=== PATIENT | female | born 1965 | race Caucasian/White ===

== ENCOUNTER 2016-08-24 22:59 | Emergency (ER) | payer SELFPAY ==
[2016-08-25 00:50] VITALS: BP 111/70; PULSE 93; RESP 16; TEMP 99.2; O2SAT 98
[2016-08-25] MEDS ORDERED: Promethazine/Cod 6.25mg-10mg/5ml Syr UD PO ONE (01:27)
[2016-08-25] MEDS ORDERED: Promethazine/Cod 6.25mg-10mg/5ml Syr UD ONE (01:37)
--- NOTE | 2016-08-25 01:48 | ED PDOC ---
HPI: CCC, URI, Sore Throat Time Seen by Provider: 08/25/16 01:02 Chief Complaint (Nursing): Headache Chief Complaint (Provider): Cough, chest pain and back pain when coughing History Per: Patient History/Exam Limitations: no limitations Have you had recent travel within the past 21 days to any of the following countries: [place], [place], [place] or [place]?: No Onset/Duration Of Symptoms: Days Current Symptoms Are (Timing): Still Present Location Of Pain: Diffuse Myalgias Sick Contacts (Context): None Associated Symptoms: Cough, Myalgias. denies: Fever, Sore Throat, Sputum Ear Symptoms: Bilateral: None Additional Complaint(s): Cough since yesterday with body aches. Pt deneis fever but states she has been feeling hot. Pt took amoxicillin yesterday and today which she had from her country. No medication for cough. Past Medical History Reviewed: Historical Data, Nursing Documentation, Vital Signs Vital Signs: Last Vital Signs Temp 99.2 F 08/25/16 00:46 Pulse 93 H 08/25/16 00:46 Resp 16 08/25/16 00:46 BP 111/70 08/25/16 00:46 Pulse Ox 98 08/25/16 01:49 - Medical History PMH: Gastritis, Hyperlipidemia - Surgical History Surgical History: No Surg Hx - Family History Family History: States: Unknown Family Hx - Living Arrangements Living Arrangements: With Family - Social History Current smoker - smoking cessation education provided: No - Home Medications Home Medications: Ambulatory Orders Medication Instructions Recorded Omeprazole [Prilosec] 40 mg PO DAILY #30 ecc 04/28/15 Ibuprofen [Motrin Tab] 600 mg PO Q8H PRN #20 tab 12/09/15 traMADol [Ultram] 50 mg PO Q6H PRN #15 tab 12/09/15 Promethazine HCl/Codeine 10 ml PO Q8H PRN #150 ml 08/25/16 [Prometh-Codein 6.25-10 mg/5 ml] - Allergies Allergies/Adverse Reactions: Allergies Allergy/AdvReac Type Severity Reaction Status Date / Time No Known Allergies Allergy Verified 12/09/15 21:40 Review of Systems ROS Statement: Except As Marked, All Systems Reviewed And Found Negative Constitutional: Positive for: Sweats, Malaise. Negative for: Fever, Chills Cardiovascular: Positive for: Chest Pain Respiratory: Positive for: Cough Physical Exam - Reviewed Nursing Documentation Reviewed: Yes Vital Signs Reviewed: Yes - Physical Exam Appears: Positive for: Well, Non-toxic, No Acute Distress Head Exam: Positive for: ATRAUMATIC, NORMAL INSPECTION, NORMOCEPHALIC Skin: Positive for: Normal Color, Warm, DRY Eye Exam: Positive for: EOMI, Normal appearance, PERRL ENT: Positive for: Normal ENT Inspection Neck: Positive for: Normal, Painless ROM Cardiovascular/Chest: Positive for: Regular Rate, Rhythm Respiratory: Positive for: Normal Breath Sounds. Negative for: Accessory Muscle Use, Respiratory Distress Gastrointestinal/Abdominal: Positive for: Normal Exam, Bowel Sounds Back: Positive for: Normal Inspection Extremity: Positive for: Normal ROM Neurologic/Psych: Positive for: Alert, Oriented - ECG O2 Sat by Pulse Oximetry: 98 Pulse Ox Interpretation: Normal Medical Decision Making Medical Decision Making: (+) influenza CXR - Normal Disposition - Clinical Impression Clinical Impression: Influenza A - Patient ED Disposition Is Patient to be Admitted: No - Disposition Referrals: FAMILY PROVIDER,NO [Primary Care Provider] - [facility] [Outside] Disposition: Routine/Home Disposition Time: 02:24 Condition: GOOD Additional Instructions: Tylenol or motrin for fever. Prescriptions: Promethazine HCl/Codeine [Prometh-Codein 6.25-10 mg/5 ml] 10 ml PO Q8H PRN #150 ml PRN Reason: Cough Instructions: Influenza (ED) Print Language: BENGALI
--- NOTE | 2016-08-25 08:39 | RAD ---
HISTORY: cough, chest and back pain with cough COMPARISON: No prior. TECHNIQUE: Chest PA and lateral FINDINGS: LUNGS: No active pulmonary disease. PLEURA: No significant pleural effusion identified. No pneumothorax apparent. CARDIOVASCULAR: Normal. OSSEOUS STRUCTURES: No significant abnormalities. VISUALIZED UPPER ABDOMEN: Normal. OTHER FINDINGS: None. IMPRESSION: No active disease.
== END 2016-08-25 02:41 | disposition home or self-care (01) ==
LOC: H.ER 22:59
DX: R05 Cough (principal); J10.1 Influenza due to other identified influenza virus with other respiratory manifestations; R07.9 Chest pain, unspecified; J02.9 Acute pharyngitis, unspecified; E78.5 Hyperlipidemia, unspecified

== ENCOUNTER 2016-12-09 02:02 | Emergency (ER) | payer OTHER ==
[2016-12-09 02:40] VITALS: BP 103/56; PULSE 65; RESP 16; TEMP 98.5; O2SAT 100
--- NOTE | 2016-12-09 02:54 | ED PDOC ---
HPI: CCC, URI, Sore Throat Time Seen by Provider: 12/09/16 02:07 Chief Complaint (Nursing): ENT Problem Chief Complaint (Provider): Sore throat History Per: Patient Additional Complaint(s): pt is a 51 yo female, no PMH, presents to ED with complaints of left sided sore throat pain, left ear pain, and headache x8 days. Pt denies v/n/d. Pt medicated herself with Amoxil PO, no Motrin or Tylenol taken. Past Medical History Reviewed: Nursing Documentation, Vital Signs Vital Signs: Last Vital Signs Temp 98.5 F 12/09/16 02:35 Pulse 65 12/09/16 02:35 Resp 16 12/09/16 02:35 BP 103/56 L 12/09/16 02:35 Pulse Ox 100 12/09/16 02:54 - Medical History PMH: Gastritis, Hyperlipidemia Denies: Chronic Kidney Disease - Surgical History Surgical History: No Surg Hx - Family History Family History: States: Unknown Family Hx - Living Arrangements Living Arrangements: With Family - Social History Current smoker - smoking cessation education provided: No Alcohol: None Drugs: Denies - Home Medications Home Medications: Ambulatory Orders Medication Instructions Recorded Omeprazole [Prilosec] 40 mg PO DAILY #30 ecc 04/28/15 Ibuprofen [Motrin Tab] 600 mg PO Q8H PRN #20 tab 12/09/15 traMADol [Ultram] 50 mg PO Q6H PRN #15 tab 12/09/15 Promethazine HCl/Codeine 10 ml PO Q8H PRN #150 ml 08/25/16 [Prometh-Codein 6.25-10 mg/5 ml] Ibuprofen [Motrin] 600 mg PO Q6 #20 tab 12/09/16 - Allergies Allergies/Adverse Reactions: Allergies Allergy/AdvReac Type Severity Reaction Status Date / Time No Known Allergies Allergy Verified 12/09/15 21:40 Review of Systems ROS Statement: Except As Marked, All Systems Reviewed And Found Negative ENT: Positive for: Ear Pain, Throat Pain Neurological: Positive for: Headache Physical Exam - Reviewed Nursing Documentation Reviewed: Yes Vital Signs Reviewed: Yes - Physical Exam Appears: Positive for: Well, Non-toxic, No Acute Distress Head Exam: Positive for: ATRAUMATIC, NORMAL INSPECTION, NORMOCEPHALIC Skin: Positive for: Normal Color, Warm, DRY Eye Exam: Positive for: EOMI, Normal appearance, PERRL ENT: Positive for: Normal ENT Inspection, TM Is/Are (WNL). Negative for: Pharyngeal Erythema, Tonsillar Exudate, Tonsillar Swelling Neck: Positive for: Normal, Painless ROM Cardiovascular/Chest: Positive for: Regular Rate, Rhythm Respiratory: Positive for: CNT, Normal Breath Sounds Gastrointestinal/Abdominal: Positive for: Normal Exam, Bowel Sounds, Soft Back: Positive for: Normal Inspection Extremity: Positive for: Normal ROM Neurologic/Psych: Positive for: Alert, Oriented - ECG O2 Sat by Pulse Oximetry: 100 Medical Decision Making Medical Decision Making: Medicated with Motrin PO Pt educated on viral pharyngitis or Post nasal drip induced pharyngitis and demonstrated full understanding. Supportive care advised Disposition - Clinical Impression Clinical Impression: Pharyngitis - Patient ED Disposition Is Patient to be Admitted: No - Disposition Disposition: Routine/Home Disposition Time: 03:04 Condition: STABLE Prescriptions: Ibuprofen [Motrin] 600 mg PO Q6 #20 tab Instructions: Pharyngitis (ED) Print Language: ENGLISH
== END 2016-12-09 03:13 | disposition home or self-care (01) ==
LOC: H.ER 02:02
DX: J02.9 Acute pharyngitis, unspecified (principal)

== ENCOUNTER 2017-06-15 16:27 | Emergency (ER) | payer SELFPAY ==
[2017-06-15 16:45] VITALS: BP 114/53; PULSE 81; RESP 16; TEMP 98; O2SAT 100
--- NOTE | 2017-06-15 16:54 | ED PDOC ---
HPI: General Adult Time Seen by Provider: 06/15/17 16:47 Chief Complaint (Nursing): Flu-like Symptoms Chief Complaint (Provider): Non-Productive Cough and Nasal Congestion History Per: Patient History/Exam Limitations: no limitations Onset/Duration Of Symptoms: Days (x4) Current Symptoms Are (Timing): Still Present Additional Complaint(s): 52 year old female presenting to the ED complaining of non productive cough associated with nasal congestion. Denies fever, chest pain, shortness of breath , hemoptysis, palpitations. Patient states that her coworkers also have similar symptoms. Past Medical History Reviewed: Historical Data, Nursing Documentation, Vital Signs Vital Signs: Last Vital Signs Temp 98.0 F 06/15/17 16:44 Pulse 81 06/15/17 16:44 Resp 16 06/15/17 16:44 BP 114/53 L 06/15/17 16:44 Pulse Ox 100 06/15/17 17:34 - Medical History PMH: Gastritis, Hyperlipidemia Denies: Chronic Kidney Disease - Surgical History Surgical History: No Surg Hx - Family History Family History: States: Unknown Family Hx - Social History Current smoker - smoking cessation education provided: No Ex-Smoker (has not smoked in the last 12 months): No Alcohol: None Drugs: Denies - Home Medications Home Medications: Ambulatory Orders Medication Instructions Recorded Omeprazole [Prilosec] 40 mg PO DAILY #30 ecc 04/28/15 Ibuprofen [Motrin Tab] 600 mg PO Q8H PRN #20 tab 12/09/15 traMADol [Ultram] 50 mg PO Q6H PRN #15 tab 12/09/15 Promethazine HCl/Codeine 10 ml PO Q8H PRN #150 ml 08/25/16 [Prometh-Codein 6.25-10 mg/5 ml] Ibuprofen [Motrin] 600 mg PO Q6 #20 tab 12/09/16 Benzonatate [Tessalon Perle] 100 mg PO Q8 PRN #15 capsule 06/15/17 Fluticasone Propionate [Flonase] 2 spr NS DAILY PRN #1 bottle 06/15/17 - Allergies Allergies/Adverse Reactions: Allergies Allergy/AdvReac Type Severity Reaction Status Date / Time No Known Allergies Allergy Verified 12/09/15 21:40 Review of Systems Constitutional: Negative for: Fever ENT: Positive for: Nose Congestion Cardiovascular: Negative for: Chest Pain, Palpitations Respiratory: Positive for: Cough (non productive). Negative for: Shortness of Breath, Hemoptysis Physical Exam - Reviewed Nursing Documentation Reviewed: Yes Vital Signs Reviewed: Yes - Physical Exam Appears: Positive for: Non-toxic, No Acute Distress Head Exam: Positive for: NORMAL INSPECTION Skin: Positive for: Normal Color, Warm, Dry. Negative for: Rash Eye Exam: Positive for: Normal appearance, EOMI, PERRL. Negative for: Nystagmus ENT: Positive for: Normal ENT Inspection, Pharynx Is (clear), TM Is/Are (normal) . Negative for: Sinus Pain/Drainage, Nasal Congestion, Pharyngeal Erythema, Tonsillar Exudate, Tonsillar Swelling Cardiovascular/Chest: Positive for: Regular Rate, Rhythm, Chest Non Tender. Negative for: Tachycardia Respiratory: Positive for: Normal Breath Sounds. Negative for: Wheezing, Respiratory Distress Neurologic/Psych: Positive for: Alert, Oriented, Gait - ECG O2 Sat by Pulse Oximetry: 100 (RA) Pulse Ox Interpretation: Normal Medical Decision Making Medical Decision Makin Initial Impression 52 year old female presenting with non productive cough and nasal congestion Initial Plan: * Reevaluation Documented by Malou Monroe acting as a scribe for Titi Fraga. All medical record entries made by the Scribe were at my direction and personally dictated by me. I have reviewed the chart and agree that the record accurately reflects my personal performance of the history, physical exam, medical decision making, and the department course for this patient. I have also personally directed, reviewed, and agree with the discharge instructions and disposition. Disposition - Clinical Impression Clinical Impression: Upper respiratory infection - Patient ED Disposition Is Patient to be Admitted: No - Disposition Referrals: [facility] [Outside] Disposition: Routine/Home Disposition Time: 16:52 Condition: STABLE Additional Instructions: Follow up with PMD in 2 days for further evaluation. Return to ED immediately for any concerns or questions. Prescriptions: Benzonatate [Tessalon Perle] 100 mg PO Q8 PRN #15 capsule PRN Reason: Cough Fluticasone Propionate [Flonase] 2 spr NS DAILY PRN #1 bottle PRN Reason: Allergy Symptoms Instructions: Upper Respiratory Infection (ED) Forms: [employer] (Burmese), [facility] ED School/Work Excuse Print Language: FILIPINO
== END 2017-06-15 17:27 | disposition home or self-care (01) ==
LOC: H.ER 16:27
DX: J06.9 Acute upper respiratory infection, unspecified (principal); E78.5 Hyperlipidemia, unspecified

== ENCOUNTER 2017-09-25 18:44 | Emergency (ER) | payer SELFPAY ==
[2017-09-25 18:58] VITALS: PULSE 77; RESP 18
[2017-09-25] MEDS ORDERED: Amoxicillin-Clav 875-125 mg Tab PO STA (20:17)
--- NOTE | 2017-09-25 20:20 | ED PDOC ---
HPI: CCC, URI, Sore Throat Time Seen by Provider: 09/25/17 19:56 Chief Complaint (Nursing): ENT Problem Chief Complaint (Provider): right ear pain, throat pain History Per: Patient Additional Complaint(s): 52-year-old female presents to ED with pain to the right ear for 5 days associated with sore throat. Patient has been taking Motrin which has provided minimal relief of symptoms. She denies any acute hearing loss or foreign body sensation to right ear. PMD: none Past Medical History Reviewed: Historical Data, Nursing Documentation, Vital Signs Vital Signs: Last Vital Signs Temp 98 F 09/25/17 18:56 Pulse 77 09/25/17 18:56 Resp 18 09/25/17 18:56 BP 121/74 09/25/17 18:56 Pulse Ox 98 09/25/17 18:56 - Medical History PMH: No Chronic Diseases - Surgical History Surgical History: No Surg Hx - Family History Family History: States: No Known Family Hx - Living Arrangements Living Arrangements: With Family - Social History Current smoker - smoking cessation education provided: No Alcohol: None Drugs: Denies - Home Medications Home Medications: Ambulatory Orders Medication Instructions Recorded Omeprazole [Prilosec] 40 mg PO DAILY #30 ecc 04/28/15 Ibuprofen [Motrin Tab] 600 mg PO Q8H PRN #20 tab 12/09/15 traMADol [Ultram] 50 mg PO Q6H PRN #15 tab 12/09/15 Promethazine HCl/Codeine 10 ml PO Q8H PRN #150 ml 08/25/16 [Prometh-Codein 6.25-10 mg/5 ml] Ibuprofen [Motrin] 600 mg PO Q6 #20 tab 12/09/16 Benzonatate [Tessalon Perle] 100 mg PO Q8 PRN #15 capsule 06/15/17 Fluticasone Propionate [Flonase] 2 spr NS DAILY PRN #1 bottle 06/15/17 Amoxicillin/Clavulanate [Augmentin 1 tab PO BID #13 tab 09/25/17 875 MG-125 MG] Ibuprofen [Motrin Tab] 800 mg PO Q8 PRN #20 tab 09/25/17 - Allergies Allergies/Adverse Reactions: Allergies Allergy/AdvReac Type Severity Reaction Status Date / Time No Known Allergies Allergy Verified 04/25/18 18:55 Review of Systems ROS Statement: Except As Marked, All Systems Reviewed And Found Negative Constitutional: Negative for: Fever ENT: Positive for: Ear Pain (right), Throat Pain Respiratory: Negative for: Cough Gastrointestinal: Negative for: Nausea, Vomiting Neurological: Positive for: Headache. Negative for: Dizziness Physical Exam - Reviewed Nursing Documentation Reviewed: Yes Vital Signs Reviewed: Yes - Physical Exam Appears: Positive for: Well, Non-toxic, No Acute Distress Skin: Negative for: Rash Eye Exam: Positive for: Normal appearance ENT: Positive for: Pharyngeal Erythema, Other (Erythema and bulging noted to right tympanic membrane with obscured landmarks, appearance consistent with otitis media, canal is mildly erythematous with no edema or eczema). Negative for: Nasal Congestion, Tonsillar Exudate, Tonsillar Swelling Cardiovascular/Chest: Positive for: Regular Rate, Rhythm Respiratory: Positive for: Normal Breath Sounds Neurologic/Psych: Positive for: Alert, Oriented - ECG O2 Sat by Pulse Oximetry: 98 Pulse Ox Interpretation: Normal Medical Decision Making Medical Decision Making: Impression: Right otitis media Plan: Initial dose Augmentin 875 mg Motrin 600 mg Prescriptions for Augmentin and Motrin provided. Patient was referred to clinic for follow-up. Disposition - Clinical Impression Clinical Impression: Otitis media - Patient ED Disposition Is Patient to be Admitted: No Counseled Patient/Family Regarding: Diagnosis, Need For Followup, Rx Given - Disposition Referrals: [facility] [Outside] Disposition: Routine/Home Disposition Time: 20:21 Condition: STABLE Additional Instructions: Take prescription meds as directed. Follow-up with clinic in 2-3 days. Prescriptions: Amoxicillin/Clavulanate [Augmentin 875 MG-125 MG] 1 tab PO BID #13 tab Ibuprofen [Motrin Tab] 800 mg PO Q8 PRN #20 tab PRN Reason: Pain, Moderate (4-7) Instructions: Ear Infections (Otitis Media) (DC) Forms: [employer] (Vietnamese) Print Language: MALAYSIAN
[2017-09-25] MEDS ORDERED: Amoxicillin-Clav 875-125 mg Tab PO ONE (20:29)
[2017-09-25 21:44] VITALS: BP 128/74; TEMP 98; O2SAT 99
== END 2017-09-25 21:44 | disposition home or self-care (01) ==
LOC: H.ER 18:44
DX: H66.91 Otitis media, unspecified, right ear (principal)

== ENCOUNTER 2018-09-25 09:45 | Emergency (ER) | payer OTHER, SELFPAY ==
[2018-09-25 09:51] VITALS: BP 132/77; PULSE 86; RESP 15; TEMP 98.6; O2SAT 100
[2018-09-25 09:52] VITALS: BMI 24.2
--- NOTE | 2018-09-25 10:36 | ED PDOC ---
Upper Extremity Pain/Injury Time Seen by Provider: 09/25/18 09:58 Chief Complaint (Nursing): Upper Extremity Problem/Injury Chief Complaint (Provider): Axilla "mass" History Per: Patient Additional Complaint(s): 53 yo female, PMH of high cholesterol, presents to ED with complaints of waking up with a "mass" to her right axilla. Pt denies any pain/itchiness, approx 2cm nodule, no open skin/bleeding noted. Pt does admit to shaving the night before mass was noted. no fever or chills. no redness to site Past Medical History Reviewed: Nursing Documentation, Vital Signs Vital Signs: Last Vital Signs Temp 98.6 F 09/25/18 09:51 Pulse 86 09/25/18 09:51 Resp 15 09/25/18 09:51 BP 132/77 09/25/18 09:51 Pulse Ox 100 09/25/18 09:51 - Medical History PMH: Gastritis, Hyperlipidemia - Surgical History Surgical History: No Surg Hx - Family History Family History: States: No Known Family Hx - Living Arrangements Living Arrangements: With Family - Home Medications Home Medications: Ambulatory Orders Medication Instructions Recorded Omeprazole [Prilosec] 40 mg PO DAILY #30 ecc 04/28/15 Ibuprofen [Motrin Tab] 600 mg PO Q8H PRN #20 tab 12/09/15 traMADol [Ultram] 50 mg PO Q6H PRN #15 tab 12/09/15 Promethazine HCl/Codeine 10 ml PO Q8H PRN #150 ml 08/25/16 [Prometh-Codein 6.25-10 mg/5 ml] Ibuprofen [Motrin] 600 mg PO Q6 #20 tab 12/09/16 Benzonatate [Tessalon Perle] 100 mg PO Q8 PRN #15 capsule 06/15/17 Fluticasone Propionate [Flonase] 2 spr NS DAILY PRN #1 bottle 06/15/17 Amoxicillin/Clavulanate [Augmentin 1 tab PO BID #13 tab 09/25/17 875 MG-125 MG] Ibuprofen [Motrin Tab] 800 mg PO Q8 PRN #20 tab 09/25/17 Cephalexin [cephalexin] 500 mg PO BID #14 cap 09/25/18 - Allergies Allergies/Adverse Reactions: Allergies Allergy/AdvReac Type Severity Reaction Status Date / Time No Known Allergies Allergy Verified 09/25/18 10:21 Review of Systems ROS Statement: Except As Marked, All Systems Reviewed And Found Negative Skin: Positive for: Other (mass) Physical Exam - Reviewed Nursing Documentation Reviewed: Yes Vital Signs Reviewed: Yes - Physical Exam Appears: Positive for: Well, Non-toxic, No Acute Distress Head Exam: Positive for: ATRAUMATIC, NORMAL INSPECTION, NORMOCEPHALIC Skin: Positive for: Normal Color, Warm, DRY Eye Exam: Positive for: EOMI, Normal appearance, PERRL ENT: Positive for: Normal ENT Inspection Neck: Positive for: Normal, Painless ROM Cardiovascular/Chest: Positive for: Regular Rate, Rhythm Respiratory: Positive for: CNT, Normal Breath Sounds Gastrointestinal/Abdominal: Positive for: Normal Exam, Soft Back: Positive for: Normal Inspection Extremity: Positive for: Normal ROM, Other (Right axilla with (+) ~ 2 cm boggy, non tender mobile mass, consistent with Lymph node. (+) site recently shaved) Neurological/Psych: Positive for: Awake, Alert, Normal Tone - ECG O2 Sat by Pulse Oximetry: 100 Medical Decision Making Medical Decision Making: Pt educated on lymph nodes and advised to follow up with clinic. Disposition - Clinical Impression Clinical Impression: Lymphadenopathy - Patient ED Disposition Is Patient to be Admitted: No - Disposition Disposition: Routine/Home Disposition Time: 10:37 Condition: GOOD Prescriptions: Cephalexin [cephalexin] 500 mg PO BID #14 cap Instructions: Lymphadenitis Forms: [employer] (Faroese)
== END 2018-09-25 10:27 | disposition home or self-care (01) ==
LOC: H.ER 09:45
DX: R59.9 Enlarged lymph nodes, unspecified (principal); E78.5 Hyperlipidemia, unspecified